=== PATIENT | female | born 1965 | race Caucasian/White ===

== ENCOUNTER 2016-09-23 10:10 | Emergency (ER) | payer OTHER ==
[2016-09-23] MEDS ORDERED: ZOFRAN ODT 4 MG PO ONE (10:38)
[2016-09-23] MEDS ORDERED: TYLENOL 325 MG PO ONE (10:38)
[2016-09-23] MEDS ORDERED: DUONEB 0.5-3 MG/3 ml Neb IH ONE ×2 (10:38→10:42)
--- NOTE | 2016-09-23 10:45 | ERPHSYRPT ---
- History of Present Illness Time Seen by Provider: 09/23/16 10:34 Source: patient Patient Subjective Stated Complaint: PT CO COUGH, STUFFY NOSE,EARACHE, ACHES ALL OVER, CHILLS, AND VOMITED X1 TODAY Triage Nursing Assessment: PT ALERT, RESP EASY,SKIN W/D , MUCUS MEMBRANES MOIST , ABLE TO AMBULATE TO BED Physician History: CC: aches Hx: 51 y/o patient of [facility] at [facility]. She has 2-3 day hx of body aches, joint aches, cough, headache, feeling poorly. She vomited 3 times today. has similar illness. She took flu vaccine. She feels horrible. No marked shortness of breath. Timing/Duration: day(s) Allergies/Adverse Reactions: ofloxacin [From Floxin] Allergy (Verified 09/23/16 10:24) Home Medications: Alprazolam [Xanax 0.5 mg] 0.5 mg PO TIDPRN PRN 07/09/16 [History] Amitriptyline HCl 10 mg [Elavil 10 mg] 20 mg PO HS 07/09/16 [History] Duloxetine HCl [Cymbalta] 120 mg PO DAILY 07/09/16 [History] Estradiol 1 mg [Estrace 1 mg] 1 mg PO DAILY 07/09/16 [History] Levothyroxine Sodium 88 Mcg [Synthroid 88 Mcg] 88 mcg PO DAILY 07/09/16 [ History] Lisinopril 20 mg [Zestril 20 MG] 20 mg PO DAILY 07/09/16 [History] Mycophenolate Mofetil [Cellcept] 250 mg PO UD 07/09/16 [History] Prednisone 5 mg [Deltasone 5 mg] 2.5 mg PO DAILY 07/09/16 [History] Sumatriptan Succinate 6 mg [Imitrex 6 MG/0.5 ML] 6 mg SQ UD 07/09/16 [ History] Tofacitinib Citrate [Xeljanz] 5 mg PO DAILY 07/09/16 [History] Hx Tetanus, Diphtheria Vaccination/Date Given: Yes (up to date) Hx Influenza Vaccination/Date Given: No Hx Pneumococcal Vaccination/Date Given: No Immunizations Up to Date: Yes - Review of Systems Constitutional: Fever, Chills, Malaise Eyes: No Symptoms Ears, Nose, & Throat: Nose Congestion, Throat Pain Respiratory: Cough, No Dyspnea Abdominal/Gastrointestinal: Nausea, Vomiting Genitourinary Symptoms: No Dysuria Musculoskeletal: Joint Pain, Myalgias Skin: No Rash Neurological: Headache - Past Medical History Pertinent Past Medical History: Yes Neurological History: Migraines Cardiac History: Hypertension Endocrine Medical History: Hypothyroidism Musculoskeletal History: Fibromyalgia, Osteoarthritis, Rheumatoid Arthritis Psycho-Social History: Depression - Past Surgical History Past Surgical History: Yes Musculoskeletal: Orthopedic Surgery Female Surgical History: Hysterectomy - Social History Smoking Status: Never smoker Exposure to second hand smoke: Yes Drug Use: none Patient Lives Alone: No - Female History Hx Last Menstrual Period: HYSTER - Nursing Vital Signs Nursing Vital Signs: Initial Vital Signs Temperature 98.3 F Temperature Source Oral Pulse Rate 107 Respiratory Rate 16 Blood Pressure [Right Arm] 176/96 Pain Intensity 5 - Physical Exam General Appearance: alert Eye Exam: PERRL/EOMI Ears, Nose, Throat Exam: normal ENT inspection, moist mucous membranes Neck Exam: normal inspection, non-tender, supple, No meningismus Respiratory Exam: normal breath sounds, lungs clear Cardiovascular Exam: regular rate/rhythm, No murmur Gastrointestinal/Abdomen Exam: soft, No tenderness, No distention Back Exam: normal inspection Extremity Exam: normal inspection, normal range of motion Neurologic Exam: alert, oriented x 3, cooperative, sensation nml, No motor deficits Skin Exam: warm, dry, No rash SpO2 Interpretation: normal SpO2: 97 Oxygen Delivery: Room Air - Course Nursing assessment & vital signs reviewed: Yes - Radiology Exams cxr X-ray Interpretation: Discussed w/ radiologist, Negative Ordered Tests: Active Orders 24 hr Category Date Time Status Clean Catch Urine Specimen STAT Care 09/23/16 10:39 Active PO Popsicle STAT Care 09/23/16 10:39 Active CHEST 2 VIEWS (PA AND LAT) Stat Exams 09/23/16 10:38 Completed UA W/ MICROSCOPIC Stat Lab 09/23/16 11:18 Completed Respiratory Nebulizer STAT RT 09/23/16 10:39 Completed Medication Summary Discontinued Medications Generic Name Dose Route Start Last Admin Trade Name Freq PRN Reason Stop Dose Admin Acetaminophen 650 mg 09/23/16 10:38 09/23/16 10:52 Tylenol 325 Mg PO 09/23/16 10:39 650 mg STAT ONE Administration Acetaminophen Confirm 09/23/16 10:48 Tylenol 325 Mg Administered 09/23/16 10:49 Dose 650 mg .ROUTE .STK-MED ONE Albuterol/Ipratropium 3 ml 09/23/16 10:38 09/23/16 10:53 Duoneb 0.5-3 Mg/3 Ml Neb IH 09/23/16 10:39 3 ml STAT ONE Administration Albuterol/Ipratropium Confirm 09/23/16 10:42 Duoneb 0.5-3 Mg/3 Ml Neb Administered 09/23/16 10:43 Dose 3 ml IH .STK-MED ONE Ondansetron HCl 4 mg 09/23/16 10:38 09/23/16 10:50 Zofran Odt 4 Mg PO 09/23/16 10:39 4 mg STAT ONE Administration Ondansetron HCl Confirm 09/23/16 10:48 Zofran Odt 4 Mg Administered 09/23/16 10:49 Dose 4 mg .ROUTE .STK-MED ONE Lab/Rad Data: Laboratory Results 09/23/16 09/23/16 Range/Units 11:18 10:37 Ur Collection Type CCMS Urine Color YELLOW (YELLOW) Urine Appearance CLEAR (CLEAR) Urine pH 7.0 (5-6) Ur Specific Gregory 1.020 (1.005-1.025) Urine Protein 30 (Negative) Urine Glucose (UA) NEGATIVE (NEGATIVE) mg/dL Urine Ketones TRACE (NEGATIVE) Urine Nitrite NEGATIVE (NEGATIVE) Urine Bilirubin NEGATIVE (NEGATIVE) Urine Urobilinogen 0.2 (0-1) mg/dL Urine WBC (Auto) NEGATIVE (NEGATIVE) Urine RBC (Auto) TRACE-LYSED (0-5) Bob/ul Urine Microscopic RBC 5-10 (0-2) /HPF Ur Epithelial Cells MODERATE (FEW) /HPF Urine Mucus SLIGHT (NEGATIVE) /HPF Resp Infection Panel NEGATIVE (Negative) Specimen Received 09/23/16 1125 - Progress Progress Note: 09/23/16 11:51 Flu A. Symptom Rx indicated. Instr given. Counseled pt/family regarding: lab results, diagnosis, need for follow-up, rad results - Departure Time of Disposition: 11:52 Departure Disposition: Home Clinical Impression: Influenza A Condition: Stable Critical Care Time: No Referrals: CONNOR TA PA [Primary Care Provider] - Instructions: Cough -- Adult, Influenza -- Adult Additional Instructions: VIRAL ILLNESS 1. Rest at home and take any prescribed medications as directed or until gone. 2. Offer plenty of fluids as tolerated. 3. Acetaminophen or Ibuprofen as directed. 4. Be sure to follow up with your family physician or return to the emergency department if symptoms change or become worse. Rx albuterol MDI. Rx zofran for nausea. Prescriptions: Ondansetron [Zofran Odt] 4 mg PO Q6HPRN PRN #10 tab.rapdis PRN Reason: Nausea/Vomiting Albuterol Sulfate [Albuterol Sulfate Hfa] 2 puff IH Q4-6HPRN PRN #1 [id number].[id number] PRN Reason: cough or wheeze
[2016-09-23] MEDS ORDERED: TYLENOL 325 MG ONE (10:48)
[2016-09-23] MEDS ORDERED: ZOFRAN ODT 4 MG ONE (10:48)
--- NOTE | 2016-09-23 10:55 | XRAY ---
Indication: Cough and flulike symptoms. Comparison: July 02, 2006. PA/lateral chest again demonstrates normal heart and lungs. Bony thorax intact.
[2016-09-23 11:27] LABS: Collection Type CCMS
[2016-09-23 11:28] LABS: COMPLETE URINE MICROSCOPIC? YES
[2016-09-23 11:44] LABS: Epithelial Cells MODERATE /HPF (FEW); Mucus SLIGHT /HPF (NEGATIVE)
[2016-09-23 11:53] VITALS: O2SAT 97
[2016-09-23 12:03] VITALS: BP 152/82; PULSE 104
== END 2016-09-23 12:03 | disposition home or self-care (01) ==
LOC: ED 10:10
DX: J11.1 Influenza due to unidentified influenza virus with other respiratory manifestations (principal); R11.2 Nausea with vomiting, unspecified
CPT/HCPCS: 71020; 81000; 87631; 94640; 99283; Q0162

== ENCOUNTER 2017-02-10 05:50 | Day surgery (SDC) | payer OTHER, SELFPAY ==
[2017-02-10] MEDS ORDERED: Lactated Ringers 1,000 ML IV SCH (06:30)
[2017-02-10] MEDS ORDERED: Lactated Ringers 1,000 ML IV ONE (07:48)
[2017-02-10 08:55] VITALS: BP 140/95; PULSE 75; O2SAT 98
[2017-02-10] MEDS ORDERED: Ketamine HCl 50 MG/ML IV ONE (09:00)
[2017-02-10] MEDS ORDERED: DIPRIVAN 200 MG/20 ML IV ONE (09:00)
--- NOTE | 2017-02-10 10:42 | OP ---
SURGERY DATE/TIME: 02/10/2017724 PREOPERATIVE DIAGNOSIS: Chronic diarrhea. POSTOPERATIVE DIAGNOSES: 1) Small transverse colon polyp. 2) Mild colitis. PROCEDURE: Colonoscopy with biopsy. SURGEON: Dr. Harden. ANESTHESIA: MAC. Medications given by anesthesia department. HISTORY: The patient is a 51 year-old white female who reports she has been having problems with diarrhea over the past few years. She has had a previous colonoscopy about five years ago which she reports was fairly normal. The patient was felt the need to have endoscopic evaluation as her diarrhea problems have worsened recently. The patient denies any blood in the stool. There had been some mucus. The patient is felt to need to have endoscopic evaluation. She was appraised of the risks of the procedure including the risk of perforation, phlebitis, untoward reaction to medication, bleeding and missed lesions. The patient verbalized her understanding and desired to have the procedure performed. DESCRIPTION OF PROCEDURE: The patient was given the medications by the anesthesia department. She had continuous pulse oximetry, ECG monitoring, intermittent blood pressure monitoring, and tidal CO2 monitoring during the examination. She was placed in the left lateral decubitus position. A digital rectal examination was performed and revealed normal anal sphincter tone and no masses. The flexible Olympus pediatric colonoscope was used to intubate the rectum. A view of the colon was developed sequentially to the cecum including a short distance into the terminal ileum. Upon insertion and withdrawal there was noted one small polyp in the transverse this appeared to be hyperplastic and was biopsied using cold biopsy technique to rule out any adenomatous changes. There were also biopsies obtained throughout the length of the colon to rule out any underlying colitis particularly collagenous colitis. The scope was removed from the patient who tolerated the procedure well and was sent back to OP recovery in good condition. The prep was noted to be fair.
== END 2017-02-10 09:03 | disposition home or self-care (01) ==
LOC: SDC 05:50
PROVIDERS: ATTEND Family Medicine
PROC: 0DBL8ZX Excision of Transverse Colon, Via Natural or Artificial Opening Endoscopic, Diagnostic (ICD-10-PCS; principal; 2017-02-10)
DX: D12.3 Benign neoplasm of transverse colon (principal); K52.9 Noninfective gastroenteritis and colitis, unspecified
CPT/HCPCS: 00810; 36415; J2704